=== PATIENT | female | born 1985 | race American Indian/Alaskan Native ===

== ENCOUNTER 2017-04-06 05:43 | Inpatient (IN) | payer SELFPAY ==
[2017-04-06] MEDS ORDERED: LACTATED RINGERS 1,000 ML IV SCH (07:30)
[2017-04-06] MEDS ORDERED: PITOCin/NS 20 UNIT/1000ML DRIP 20,000 MILLIUNITS/1,000 ML BAG IV ONE ×2 (07:43→09:11)
--- NOTE | 2017-04-06 08:24 | History and Physical Report ---
History of Present Illness Date of examination: 04/06/17 Date of admission: 04/06/17 07:21 History of present illness: 31 yo EDC 04/01/17 @ 40.5 weeks arrived to triage 4cm and progressed rapidly to complete to delivery of viable female. Voiced contractions started at 0500 am, denies LOF or vaginal bleeding, +FM. Initial care in [place] and transferred into care at 36 weeks with [facility]. Past History Past Medical History: no pertinent history Family/Genetic History: diabetes Social history: - Obstetrical History Expected Date of Delivery: 04/01/17 Actual Gestation: 40 Week(s) 5 Day(s) : 3 Para: 2 Number of Living Children: 2 Medications and Allergies Allergies Allergy/AdvReac Type Severity Reaction Status Date / Time No Known Allergies Allergy Verified 04/06/17 05:45 Active Meds: Active Medications Lactated Ringer's (Lactated Ringers) 1,000 mls @ 125 mls/hr IV DIRECT JOEL Review of Systems All systems: negative Genitourinary: normal appearance, leakage of fluid (AROM at complete), contractions, no vaginal bleeding, no vaginal discharge, no genital sores - Vital Signs Vital signs: Vital Signs Temp Pulse BP 98.6 F 81 109/68 04/06/17 06:02 04/06/17 06:02 04/06/17 06:02 Temp Pulse Resp BP Pulse Ox 98.6 F 96 H 109/68 86 04/06/17 06:02 04/06/17 08:06 04/06/17 06:02 04/06/17 08:06 - Physical Exam Lungs: Positive: Normal air movement Abdomen: Positive: normal appearance Genitourinary (Female): Positive: normal external genitalia, normal perenium Vagina: Positive: normal moisture Uterus: Positive: normal size - Obstetrical FHR: category 1 Uterine Contraction Monitor Mode: External Cervical Dilatation: 10 Cervical Effacement Percentage: 100 station: 2 Uterine Contraction Frequency (min): 3 Uterine Contraction Pattern: Regular Uterine Tone Measurement Phase: Resting Uterine Contraction Intensity: Strong/Firm Results All other labs normal. Assessment and Plan A: IUP at 40.5 weeks gestation Precipitious GBS negative P: Third stage labor
[2017-04-06] MEDS ORDERED: MOTRIN PO ONE (08:36)
[2017-04-06] MEDS: MOTRIN PO SCH ×3 (08:43→23:35)
--- NOTE | 2017-04-06 08:43 | Procedure Note ---
OB Delivery Note - Delivery Date of Delivery: 04/06/17 (7-7oz female @ 0801) Surgeon: FERNANDO GOMEZ Estimated blood loss: 500cc - Vaginal Delivery presentation: vertex Delivery position: OA Intrapartum events: precipitous labor- <3hr Delivery induction: none Delivery augmentation: rupture of membranes Delivery monitor: external FHT, external uterine Route of delivery: Delivery placenta: spontaneous Delivery cord: 3 umbilical vessels Episiotomy: none Delivery laceration: 1st degree (perineal laceration, not bleeding, not repaired. Approximates well.) Delivery repair: other (not bleeding ) Anesthesia: none - A at 1 minute: 8 at 5 minutes: 9 Infant Gender: Female (4cm on admit, C/C/ with [id number] meconium. NICU aware. Pushed with urge. Spont. cry with delivery of body. Buld suctioned and taken to warmer for NICU team to evaluate. Cord blood collected. Spont. placenta. bleeing initially small, Pitocin infusing. Called to room RN voiced heavy vaginal bleeding. Multiple large clots expressed and fundus firm. Bleeding scant. Mother and baby stable.)
[2017-04-06] MEDS ORDERED: LANSINOH TP PRN (09:00)
[2017-04-06] MEDS ORDERED: ZOFRAN IV PRN (09:00)
[2017-04-06] MEDS ORDERED: TUCKS PAD TP PRN (09:00)
[2017-04-06] MEDS ORDERED: TYLENOL PO PRN (09:00)
[2017-04-06] MEDS ORDERED: NORCO 5/325 PO PRN (09:00)
[2017-04-06] MEDS ORDERED: PHENERGAN PO PRN (09:00)
[2017-04-06] MEDS ORDERED: BENADRYL PO PRN (09:00)
[2017-04-06] MEDS ORDERED: MOTRIN PO SCH (09:00)
[2017-04-06] MEDS ORDERED: PHENERGAN PR PRN (09:00)
[2017-04-06] MEDS ORDERED: SODIUM CHLORIDE FLUSH SYRINGE 10 ML IV PRN (09:00)
[2017-04-06] MEDS ORDERED: DULCOLAX PR PRN (10:00)
[2017-04-06] MEDS: PRENATAL VITAMIN PO SCH (16:52)
[2017-04-06 19:56] LABS: Basophils % (Auto) 0.2 % (0.0-1.8); Eosinophils # (Auto) 0.1 K/mm3 (0.0-0.4); Eosinophils % (Auto) 0.4 % (0.0-4.3); Hematocrit 35.6 % (30.3-42.9); Hemoglobin 11.3 gm/dl (10.1-14.3); Lymphocytes # (Auto) 1.5 K/mm3 (1.2-5.4); Lymphocytes % (Auto) 11.1 % (13.4-35.0); Mean Corpuscular HGB Conc 32 % (30-34); Mean Corpuscular Volume 77 fl (79-97); Monocytes % (Auto) 7.1 % (0.0-7.3); Platelet Count 195 K/mm3 (140-440); Red Blood Count 4.64 M/mm3 (3.65-5.03); Red Cell Distribution Width 18.9 % (13.2-15.2)
[2017-04-06 19:57] LABS: Mean Corpuscular Hemoglobin 24 pg (28-32)
[2017-04-06] MEDS ORDERED: MILK OF MAGNESIA PO PRN (22:00)
[2017-04-07] MEDS: MOTRIN PO SCH ×2 (05:43→12:28)
[2017-04-07] MEDS ORDERED: BOOSTRIX IM ONE (06:00)
--- NOTE | 2017-04-07 08:40 | Progress Note ---
Assessment and Plan O: VSS AF PP H/H: 11.3/35.6 A: Stable PP Day 1 P: D/c home Day 1 per pts request Routine PP orders Subjective - Subjective Date of service: 04/07/17 Interval history: 31 yo EDC 04/01/17 @ 40.5 weeks arrived to triage 4cm and progressed rapidly to complete to delivery of viable female. Voiced contractions started at 0500 am, denies LOF or vaginal bleeding, +FM. Initial care in [facility] and transferred into care at 36 weeks with [facility]. Patient reports: appetite normal, voiding normally, pain well controlled, ambulating normally [place]: doing well, nursing well, bottle feeding Objective - Vital Signs Latest vital signs: Vital Signs Temp Pulse Resp BP BP Pulse Ox 04/07/17 05:43 20 04/07/17 00:00 98.4 F 70 18 93/50 04/06/17 17:09 98.5 F 69 18 101/55 04/06/17 11:21 63 96/58 99 04/06/17 10:18 99.0 F 65 18 92/48 99 04/06/17 09:41 64 100 04/06/17 09:38 69 102/66 04/06/17 09:36 72 100 04/06/17 09:31 71 100 04/06/17 09:26 69 98 04/06/17 09:23 68 102/65 04/06/17 09:21 79 100 04/06/17 09:16 71 100 04/06/17 09:11 60 100 04/06/17 09:08 70 100/63 04/06/17 09:06 61 100 04/06/17 09:01 56 L 100 04/06/17 08:56 68 100 04/06/17 08:53 50 L 100/61 04/06/17 08:51 58 L 100 04/06/17 08:46 58 L 100 04/06/17 08:41 61 100 Intake and Output 04/06/17 04/07/17 04/07/17 22:59 06:59 14:59 Intake Total 720 Output Total 500 Balance 220 Intake: Oral 720 Output: Urine 500 Void 500 Other: Total, Intake Amount 240 Total, Output Amount 500 # Voids Void 1 1 - Exam Breasts: Present: deferred Lungs: Present: Normal air movement Abdomen: Present: normal appearance, soft, normal bowel sounds. Absent: distention Vulva: both: normal Uterus: Present: normal, firm, fundal height below umbilicus. Absent: bogginess Extremities: Present: normal - Labs Labs: Abnormal lab results 04/06/17 Range/Units 18:41 WBC 13.7 H (4.5-11.0) K/mm3 MCV 77 L (79-97) fl MCH 24 L (28-32) pg RDW 18.9 H (13.2-15.2) % Lymph % (Auto) 11.1 L (13.4-35.0) % Bremer # 1.0 H (0.0-0.8) K/mm3 Seg Neutrophils % 81.2 H (40.0-70.0) % Seg Neutrophils # 11.1 H (1.8-7.7) K/mm3
--- NOTE | 2017-04-07 08:45 | Discharge Summary ---
Providers - Providers Date of Admission: 04/06/17 07:21 Date of discharge: 04/07/17 Attending physician: JAMES GILL MD Primary care physician: JAMES GILL MD Hospitalization Reason for admission: IUP at term Delivery: Episiotomy: none Laceration: none Other procedures: none complications: none Discharge diagnosis: IUP at term delivered baby: female Condition at discharge: Good Disposition: DC-01 TO HOME OR SELFCARE Plan - Discharge Medications Prescriptions: Ibuprofen [Motrin 600 MG tab] 600 mg PO Q6H PRN #30 tablet PRN Reason: pain - Provider Discharge Summary Activity: routine, no sex for 6 weeks, no heavy lifting 4 weeks, no strenuous exercise Diet: routine Instructions: routine Additional instructions: [] Smoking cessation referral if applicable(refer to patient education folder for contact #) [] Refer to [facility] Booklet Call your doctor immediately for: * Fever > 100.5 * Heavy vaginal bleeding ( >1 pad per hour) * Severe persistent headache * Shortness of breath * Reddened, hot, painful area to leg or breast * Drainage or odor from incision. * Keep incision clean and dry at all times and follow doctor's instructions regarding bathing/showering - Follow up plan Follow up: JAMES GILL MD [Primary Care Provider] - FERNANDO GOMEZ CNM [Advanced Practice Nurse] - (RTO 4 weeks )
[2017-04-07] MEDS: PRENATAL VITAMIN PO SCH (10:32)
[2017-04-07] MEDS ORDERED: M-M-R II VACCINE SUB-Q ONE (11:00)
[2017-04-07 13:54] VITALS: BP 94/49
== END 2017-04-07 13:00 | disposition home or self-care (01) | DRG 775 ==
LOC: TRG 05:43 → LD 07:21 → OB 10:41
PROVIDERS: ADMIT Obstetrics & Gynecology; ATTEND Obstetrics & Gynecology
PROC: 10E0XZZ Delivery of Products of Conception, External Approach (ICD-10-PCS; principal; 2017-04-06)
PROC: 10907ZC Drainage of Amniotic Fluid, Therapeutic from Products of Conception, Via Natural or Artificial Opening (ICD-10-PCS; 2017-04-06)
PROC: 0HQ9XZZ Repair Perineum Skin, External Approach (ICD-10-PCS; 2017-04-06)
PROC: 3E0234Z Introduction of Serum, Toxoid and Vaccine into Muscle, Percutaneous Approach (ICD-10-PCS; 2017-04-07)
DX: O62.3 Precipitate labor (principal); Z23 Encounter for immunization; O70.0 First degree perineal laceration during delivery; O77.0 Labor and delivery complicated by meconium in amniotic fluid; Z3A.40 40 weeks gestation of pregnancy; Z37.0 Single live birth
CPT/HCPCS: 36415; 85025; 86762; 86850; 86900; 86901; 99211; A6250; G0463; J2590; J7120